=== PATIENT | female | born 1985 | race Caucasian/White ===

== ENCOUNTER 2020-06-06 21:25 | Emergency (ER) | payer OTHER, MEDICAID ==
[~2020-06-06] VITALS: Ht 165.1 cm; Wt 65.3 kg
[2020-06-06 21:46] VITALS: BP 118/71
--- NOTE | 2020-06-06 22:31 | NUR ---
Pt c/o migraine and abd pain since this morning. Denies N/V/D or urinary symptoms. Hx of lupus and dysphagia, has been getting TPN thru port in left upper chest x1 year, is NPO. A/Ox4, steady gait.
[2020-06-06] MEDS ORDERED: LORazepam 2 MG/ML VIAL IVP ONE (22:40)
[2020-06-06] MEDS ORDERED: NACL 0.9% 1,000 ML IV ONE (22:40)
[2020-06-06] MEDS ORDERED: diphenhydrAMINE 50 MG/ML VIAL IVP ONE (22:40)
[2020-06-06 23:34] LABS: APPEARANCE,URINE HAZY (CLEAR); BILIRUBIN,URINE NEGATIVE (NEGATIVE); BLOOD, URINE NEGATIVE (NEGATIVE); COLOR,URINE YELLOW (YELLOW); LEUKOCYTE ESTERASE ,URINE NEGATIVE (NEGATIVE); NITRITE, URINE NEGATIVE (NEGATIVE); UGLUCOSE NEGATIVE (NEGATIVE)
[2020-06-06] MEDS ORDERED: MORPHINE SULFATE 4 MG/ML SYR IVP ONE (23:50)
[2020-06-07 00:19] LABS: RBC,URINE 0-5 /HPF (0-5); WBC,URINE 0-5 /HPF (0-5)
--- NOTE | 2020-06-07 00:31 | NUR ---
Unable to obtain blood work after multiple attempts. MD aware, states it is no longer needed.
[2020-06-07] MEDS ORDERED: FAMOTIDINE 20 MG/2 ML VIAL IVP ONE (01:00)
[2020-06-07] MEDS ORDERED: MORPHINE SULFATE 4 MG/ML SYR IVP ONE (01:00)
[2020-06-07 01:30] VITALS: BP 122/78
--- NOTE | 2020-06-07 01:31 | NUR ---
Patient discharged with v/s stable. Written and verbal after care instructions given and explained. Patient verbalized understanding. Ambulatory with steady gait. All questions addressed prior to discharge. Advised to follow up with PMD.
--- NOTE | 2020-06-08 19:14 | NUR ---
LATE ENTRY-- 0.9% NS BOLUS DISCONTINUED AT 0131
== END 2020-06-07 01:30 | disposition home or self-care (01) ==
LOC: MED 21:25
DX: G43.909 Migraine, unspecified, not intractable, without status migrainosus (principal); R10.9 Unspecified abdominal pain; E86.0 Dehydration; Z88.0 Allergy status to penicillin; Z88.6 Allergy status to analgesic agent; Z91.040 Latex allergy status; Z88.8 Allergy status to other drugs, medicaments and biological substances
CPT/HCPCS: 81001; 81025; 87086; 96361; 96374; 96375; 96376; 99284; J1200; J2060; J2270; J3490; J7030

== ENCOUNTER 2020-08-12 23:07 | Emergency (ER) | payer OTHER, MEDICAID ==
[~2020-08-12] VITALS: Ht 165.1 cm; Wt 61.2 kg
[2020-08-12 23:12] VITALS: BP 108/73
--- NOTE | 2020-08-12 23:12 | NUR ---
TO BED AMBULATORY
--- NOTE | 2020-08-12 23:25 | NUR ---
ARRIVED TO BEDSIDE WITH PATIENT ON THE GURNEY IN A POSITION OF COMFORT, ALERT AND ORINETED, TRACKING WITH EYES, GCS 15. PATIENT STATED HAVING A PMH OF CHRONIC PANCREATITIS, LUPUS, AND KIDNEY INSUFFICIENCY. STATES HAVING ALLERGIES TO PCN, COMPAZINE, IBUPROFEN, RAGALAN AND MACROVIA. PATIENT STATED TAKING MEDICATIONS OF TPN, IV ZOFRAN, AND PEPCID. VS STABLE, CONNECTED TO CONTINUOUS CARDIAC MONITORING, AND RESTING IN A POSITION OF COMFORT. C/O NAUSEA AND VOMITING. PAIN 10/10 IN BACK AND PELVIC AREA. NOTIFIED MD, WILL CONTINUE TO CLOSELY MONITOR AND FREQUENTLY ROUND.
--- NOTE | 2020-08-12 23:33 | NUR ---
received pt from triage nurse Dee and placed to bed 09. connected to vs monitor. pt currently a/o x 4 gcs 15 able to move all extremities freely. 34 year old female with med hx of chronic pancreatitis, lupus, and renal insufficiency coming from home with c/o epigastric pain that radiates to lower back since last monday. pt also states right pelvic pain that started monday. currently states + n/v. denies diarrhea/constipation. abdomen is soft and nontender. bowel sounds normoactive on all quads. denies sob/cough. denies headache/blurry vision. Has tunneled CVAD to left upper chest. flushed with brisk blood return and patent.
[2020-08-12] MEDS ORDERED: METOCLOPRAMIDE 10 MG/2 ML INJ VIAL IVP ONE (23:40)
[2020-08-12] MEDS ORDERED: ONDANSETRON 4 MG/2 ML VIAL ONE (23:53)
[2020-08-12 23:55] LABS: APPEARANCE,URINE CLEAR (CLEAR); BILIRUBIN,URINE NEGATIVE (NEGATIVE); BLOOD, URINE NEGATIVE (NEGATIVE); COLOR,URINE YELLOW (YELLOW); LEUKOCYTE ESTERASE ,URINE NEGATIVE (NEGATIVE); NITRITE, URINE NEGATIVE (NEGATIVE); UGLUCOSE NEGATIVE (NEGATIVE)
[2020-08-12 23:56] LABS: BASOPHILS % (AUTO) 0.5 % (0.0-2.0); EOSINOPHILS # (AUTO) 0.2 K/uL (0-0.4); EOSINOPHILS % (AUTO) 4.5 % (0.0-4.0); HEMOGLOBIN 9.8 g/dL (12.0-16.0); LYMPHOCYTES # (AUTO) 1.1 K/uL (2.5-16.5); LYMPHOCYTES % (AUTO) 33.7 % (20.5-51.1); MEAN CORPUSCULAR HEMOGLOBIN 32 pg (27-31); MEAN CORPUSCULAR HGB CONC 34 g/dL (33-37); MEAN CORPUSCULAR VOLUME 93.6 fL (80-94); MONOCYTES # (AUTO) 0.4 K/uL (0.8-1.0); MONOCYTES % (AUTO) 10.6 % (1.7-9.3); NEUTROPHILS # (AUTO) 1.7 K/uL (1.8-7.7); NEUTROPHILS % (AUTO) 50.7 % (42.2-75.2); PLATELET COUNT (AUTO) 176 K/uL (140-450); RED BLOOD CELL COUNT(AUTO) 3.09 MIL/uL (4.20-5.40); RED CELL DISTRIBUTION WIDTH 13.3 % (11.6-13.7); WHITE BLOOD COUNT (AUTO) 3.4 K/uL (4.8-10.8)
[2020-08-13] MEDS: NACL 0.9% 1,000 ML IV ONE (00:02)
[2020-08-13] MEDS: diphenhydrAMINE 50 MG/ML VIAL IVP ONE ×2 (00:06→01:12)
[2020-08-13] MEDS: MORPHINE SULFATE 2 MG/ML SYR IVP ONE (00:11)
[2020-08-13 00:13] LABS: ALBUMIN 3.2 g/dL (3.4-5.0); ANION GAP 11.9 (8-16); CARBON DIOXIDE 25.1 mmol/L (21-32); CREATININE 0.6 mg/dL (0.6-1.3); TOTAL BILIRUBIN 0.4 mg/dL (0.0-1.0)
--- NOTE | 2020-08-13 00:15 | NUR ---
MEDICATIONS GIVEN ORDERED PER DR. GONZALEZ. WILL CONTINUE TO MONITOR.
[2020-08-13] MEDS: ONDANSETRON 4 MG/2 ML VIAL IVP ONE ×2 (00:17→01:52)
[2020-08-13] MEDS ORDERED: ONDA-24 PO (00:37)
--- NOTE | 2020-08-13 00:41 | NUR ---
Dr. Mkceon examining patient.
--- NOTE | 2020-08-13 00:50 | NUR ---
MEDICATIONS GIVEN ORDERED PER DR. GONZALEZ.
[2020-08-13] MEDS ORDERED: SUMAtriptan succinate 6 MG/0.5 ML VIAL SUBQ ONE (00:56)
[2020-08-13] MEDS: SUMAtriptan succinate 6 MG/0.5 ML VIAL SUBQ ONE (01:15)
--- NOTE | 2020-08-13 01:25 | NUR ---
WENT OVER DISCHARGE PAPERWORK WITH THE PATIENT, STATED SHE DID NOT WANT THE ORDERED ZOFRAN FROM DR. GONZALEZ. NOTIFIED
--- NOTE | 2020-08-13 01:40 | NUR ---
PATIENT NOT WILLING TO WAIT FOR FULL REASSESSMENT, PATIENT ALSO ASKING FOR MULTIPLE MEDICATIONS. MD NOTIFIED OF REQUESTS. MD SPOKE WITH PATIENT AT BEDSIDE.
--- NOTE | 2020-08-13 01:50 | NUR ---
Patient discharged with v/s stable. Written and verbal after care instructions given and explained. Patient alert, oriented and verbalized understanding of instructions. Ambulatory with steady gait. All questions addressed prior to discharge. ID band removed. Patient advised to follow up with PMD. Rx of ZOFRAN given, patient refused RX, MD notified of refusal. Patient educated on indication of medication including possible reaction and side effects. Opportunity to ask questions provided and answered.
[2020-08-13] MEDS: FAMOTIDINE 20 MG/2 ML VIAL IVP ONE (01:51)
[2020-08-13 01:53] VITALS: BP 114/74
--- NOTE | 2020-08-15 19:30 | NUR ---
LATE ENTRY-- 0.9% NS BOLUS DISCONTINUED AT 0115
== END 2020-08-13 01:50 | disposition home or self-care (01) ==
LOC: MED 23:07
DX: G43.909 Migraine, unspecified, not intractable, without status migrainosus (principal); R10.13 Epigastric pain; G89.29 Other chronic pain; R11.2 Nausea with vomiting, unspecified; Z88.0 Allergy status to penicillin; Z88.6 Allergy status to analgesic agent; Z88.8 Allergy status to other drugs, medicaments and biological substances; Z91.040 Latex allergy status; Z79.899 Other long term (current) drug therapy
CPT/HCPCS: 36415; 80053; 81003; 81025; 83690; 85025; 85651; 86140; 96361; 96365; 96372; 96374; 96375; 96376; 99284; J1200; J2270; J2405; J3030; J3490; J7030